=== PATIENT | female | born 1990 | race Hispanic/Latino ===

== ENCOUNTER 2023-10-25 13:17 | Day surgery (SDC) | payer OTHER ==
[2023-10-25] MEDS ORDERED: hydrALAZINE 20 MG/ML VIAL SLOW IVP PRN (13:50)
[2023-10-25] MEDS ORDERED: Acetaminophen 500 MG TAB PO SCH (14:00)
== END 2023-10-25 17:15 | disposition home health service (06) ==
LOC: CSHLD/OP 13:17
PROVIDERS: ATTEND Family Medicine
DX: Z04.3 Encounter for examination and observation following other accident (principal); O26.643 Intrahepatic cholestasis of pregnancy, third trimester; O98.513 Other viral diseases complicating pregnancy, third trimester; B06.9 Rubella without complication; Z3A.36 36 weeks gestation of pregnancy; W18.2XXA Fall in (into) shower or empty bathtub, initial encounter
CPT/HCPCS: 76819